=== PATIENT | male | born 1970 | race African-American/Black ===

== ENCOUNTER 2016-08-25 03:28 | Emergency (ER) | payer OTHER ==
[~2016-08-25] VITALS: Ht 167.6 cm; Wt 68.6 kg
[2016-08-25 04:32] VITALS: BP 129/74
== END 2016-08-25 04:33 | disposition home or self-care (01) ==
LOC: EME 03:28 → EDBD 03:28 → EME 04:33
DX: R07.9 Chest pain, unspecified (principal); Z53.20 Procedure and treatment not carried out because of patient's decision for unspecified reasons; R51 Headache; F10.99 Alcohol use, unspecified with unspecified alcohol-induced disorder; F17.200 Nicotine dependence, unspecified, uncomplicated
CPT/HCPCS: 71020; 80048; 84484; 85025; 93005; 99281; 99284

== ENCOUNTER 2016-10-08 12:49 | Inpatient (IN) | payer OTHER ==
[~2016-10-08] VITALS: Ht 167.6 cm; Wt 69.5 kg
[2016-10-08 14:20] LABS: ADD MEDTOX COMMENT Y; AMPHETAMINE NEGATIVE (500 ng/mL); BARBITURATES NEGATIVE (200 ng/mL); BENZODIAZEPINES NEGATIVE (150 ng/mL); COCAINE PRESUMPTIVE POSITIVE (150 ng/mL); INTERNAL CONTROLS VALID? YES; METHADONE NEGATIVE (200 ng/mL); METHAMPHETAMINE NEGATIVE (500 ng/mL); OPIATES (MORPHINE) NEGATIVE (100 ng/mL); OXYCODONE NEGATIVE (100 ng/mL); PHENCYCLIDINE NEGATIVE (25 ng/mL); PROPOXYPHENE NEGATIVE (300 ng/mL); THC CANNABINOIDS NEGATIVE (50 ng/mL); TRICYCLIC ANTIDEPRESSANTS NEGATIVE (300 ng/mL)
[2016-10-08 15:08] LABS: MCH 33.3 PG (29.0-34.0); MCHC 34.4 G/DL (30.0-36.0); MCV 96.8 FL (86-99); MEAN PLAT.VOLUME 8.7 uM^3 (9.0-12.4); PLATELET COUNT 392 K/uL (156-360); RBC DIS.WIDTH-SD 46.8 % (39-53); RED BLOOD COUNT 4.44 M/uL (4.00-5.50); WHITE BLOOD COUNT 8.8 K/uL (4.1-10.2)
[2016-10-08 15:25] LABS: CHLORIDE 103 mEq/L (99-109); POTASSIUM 3.7 mEq/L (3.7-5.4); SODIUM 138 mEq/L (136-147)
[2016-10-08 15:27] LABS: GLUCOSE 99 mg/dL (70-99)
[2016-10-08 15:29] LABS: ANION GAP 10 MEQ/L (2-14)
[2016-10-08 15:30] LABS: SERUM ETHYL ALCOHOL < 10 mg/dL
[2016-10-08 15:31] LABS: GFR ESTIMATE (CALCULATED) > 59 mL/min/
[2016-10-08 15:32] LABS: UREA NITROGEN (BUN) 10 mg/dL (9-23)
[2016-10-08 23:27] VITALS: BP 130/91
[2016-10-09 07:28] VITALS: BP 132/72
[2016-10-09 16:09] VITALS: BP 131/66
[2016-10-10 08:07] VITALS: BP 124/63
[2016-10-10 16:17] VITALS: BP 108/57
[2016-10-11 07:55] VITALS: BP 111/71
[2016-10-11] MEDS ORDERED: CITALOPRAM HBR10 MG PO (11:58)
== END 2016-10-11 12:43 | disposition home or self-care (01) | DRG 881 ==
LOC: EME 12:49 → 1WEST 19:45 → EDOF 19:45 → 1WEST 23:20
DX: F43.21 Adjustment disorder with depressed mood (principal); Z59.0 Homelessness; R45.851 Suicidal ideations; Z81.8 Family history of other mental and behavioral disorders; F14.10 Cocaine abuse, uncomplicated; F11.10 Opioid abuse, uncomplicated; F10.129 Alcohol abuse with intoxication, unspecified; Z56.0 Unemployment, unspecified
CPT/HCPCS: 72040; 80048; 84999; 85027; 90839; 97166 GO; 99281; 99285; G0480; J2060